=== PATIENT | male | born 1990 | race Two or more races ===

== ENCOUNTER 2021-07-18 14:46 | Emergency (ER) | payer MEDICAID, OTHER ==
[~2021-07-18] VITALS: Ht 180.3 cm; Wt 88.5 kg
[2021-07-18 15:13] VITALS: BP 146/92
== END 2021-07-18 16:58 | disposition left against medical advice (07) ==
LOC: EDBD 14:46 → ER 14:46
DX: R51.9 Headache, unspecified (principal); M54.2 Cervicalgia; Z53.21 Procedure and treatment not carried out due to patient leaving prior to being seen by health care provider; Y04.2XXA Assault by strike against or bumped into by another person, initial encounter; Y93.89 Activity, other specified; Y92.89 Other specified places as the place of occurrence of the external cause; Y99.8 Other external cause status

== ENCOUNTER 2022-07-20 12:18 | Emergency (ER) | payer MEDICAID ==
[~2022-07-20] VITALS: Ht 180.3 cm; Wt 90.5 kg
[2022-07-20] MEDS ORDERED: IOHEXOL 300 MG/ML 100ML BOTTLE IJ ONE (12:43)
[2022-07-20] MEDS ORDERED: ACETAMINOPHEN 325 MG TAB PO ONE (12:45)
[2022-07-20] MEDS ORDERED: LIDOCAINE 1% HCL (LOCAL ANESTH.) INJ 20ML MDV IJ ONE (12:45)
[2022-07-20] MEDS ORDERED: KETOROLAC TROMETH 30 MG/ML 1ML VIAL IV ONE (12:45)
[2022-07-20 12:52] LABS: Basophils # (auto) 0 10 ^3/uL (0-0.2); Basophils % (auto) 0.7 % (0.0-2.0); Eosinophils # (auto) 0.1 10 ^3/uL (0-0.8); Eosinophils % (auto) 1.1 % (0.0-7.0); Hemoglobin 14.2 g/dL (13.5-17.5); Lymphocytes # (auto) 1.4 10 ^3/uL (0.4-5.4); Monocytes # (auto) 0.5 10 ^3/uL (0-1.3); Nucleated Red Blood Cells % 0.1 %; White Blood Cell 5.2 10^3/uL (4.4-10.8)
[2022-07-20 12:54] LABS: Hematocrit 43.6 % (41.0-53.0); Lymphocytes % (auto) 27.4 % (10.0-50.0); Mean Corpuscular Hemoglobin 26.8 pg (28.0-32.0); Mean Corpuscular Hgb Conc. 32.6 g/dL (32.0-36.0); Mean Corpuscular Volume 82.3 fL (80.0-100.0); Monocytes % (auto) 9.7 % (0.0-12.0); Neutrophils # (auto) 3.2 10 ^3/uL (1.6-8.6); Neutrophils % (auto) 61.1 % (37.0-80.0); Red Cell Distribution Width 13.3 % (11.8-14.3)
[2022-07-20 13:11] LABS: Anion Gap 4 (5-15); Blood Urea Nitrogen 11 mg/dL (7-18); Carbon Dioxide 27 mmol/L (21-32); Chloride 109 mmol/L (98-107); Glucose 95 mg/dL (74-106); Magnesium 2.6 mg/dL (1.6-2.6); Potassium 4.1 mmol/L (3.5-5.1); Sodium 140 mmol/L (136-145)
[2022-07-20 13:14] LABS: INR 0.97 (0.9-1.15)
[2022-07-20 13:17] LABS: Alanine Aminotransferase 48 U/L (16-61); Alkaline Phosphatase 88 U/L (45-117); Aspartate Aminotransferase 23 U/L (15-37); BUN/Creatinine Ratio 8.5 (10.0-20.0); Bilirubin, Total 0.4 mg/dL (0.2-1.0); Blood Alcohol < 3.0 mg/dL (0-5); Calcium 8.9 mg/dL (8.5-10.1); GFR African American 83 mL/min; GFR Non-African American 69 mL/min; Lipase 88 U/L (73-393); Phosphorus 1.9 mg/dL (2.5-4.90); Salicylate < 1.7 mg/dL (2.8-20.0); Total Protein 7.2 g/dL (6.4-8.2)
[2022-07-20 13:24] LABS: Acetaminophen < 2.0 ug/mL (10-30)
[2022-07-20] MEDS ORDERED: TETANUS-DIPTH-ACEL PERTUSSIS 0.5ML SYR Tdap IM ONE (14:15)
[2022-07-20] MEDS ORDERED: CEPH-510 PO (16:41)
[2022-07-20] MEDS ORDERED: ACET1CAP14 PO (16:41)
[2022-07-20] MEDS ORDERED: IBUP400T23 PO (16:41)
[2022-07-20] MEDS ORDERED: BACITRACIN INJ 50000 UNIT VIAL TOP ONE (16:45)
[2022-07-20] MEDS ORDERED: CEPHALEXIN 250 MG CAP PO ONE (16:45)
[2022-07-20 17:00] VITALS: BP 130/83
[2022-07-20] MEDS ORDERED: BACITRACIN TOP OINT 1 UD PKG TOP ONE (17:00)
== END 2022-07-20 17:40 | disposition home or self-care (01) ==
LOC: EEVIPCON 12:18 → EDBD 12:18 → ER 12:18 → EDUNIT# 12:18 → ER 17:27
DX: S21.111A Laceration without foreign body of right front wall of thorax without penetration into thoracic cavity, initial encounter (principal); S31.119A Laceration without foreign body of abdominal wall, unspecified quadrant without penetration into peritoneal cavity, initial encounter; R07.89 Other chest pain; Z88.6 Allergy status to analgesic agent; Z88.8 Allergy status to other drugs, medicaments and biological substances; W45.8XXA Other foreign body or object entering through skin, initial encounter; Y93.89 Activity, other specified; Y92.89 Other specified places as the place of occurrence of the external cause; Y99.8 Other external cause status
CPT/HCPCS: 12031; 36415; 71045; 71260; 74177; 80053; 80320; 80329; 83690; 83735; 84100; 84484; 85025; 85610; 86850; 86900; 86901; 90471; 90715; 93005; 96374; 99285; J1885; J2001; Q9967